=== PATIENT | male | born 1995 | race Caucasian/White ===

== ENCOUNTER → 2020-06-17 | Outpatient (CLI) | payer BC | LOC: ZCOL.LAB 18:37 | DX: R51.9 Headache, unspecified (principal); Z20.828 Contact with and (suspected) exposure to other viral communicable diseases ==

== ENCOUNTER 2022-06-26 19:33 | Inpatient (IN) | payer BC ==
[~2022-06-26] VITALS: Ht 182.9 cm; Wt 78.4 kg
[2022-06-26 21:19] LABS: BASO # 0.1 K/mm3 (0.0-0.2); BASO % 0.5 % (0.0-2.0); EOS % 0.3 % (0.0-4.0); GRAN # 11.8 K/mm3 (1.4-6.5); GRAN % 88.6 % (42.2-75.2); HEMATOCRIT 46.9 % (42.0-52.0); HEMOGLOBIN 15.3 g/dl (13.5-18.0); LYMPH # 0.6 K/mm3 (1.2-3.4); LYMPH % 4.3 % (20.0-51.0); MEAN CELL VOLUME 78 fl (80.0-100.0); MEAN CORPUSCULAR HEMOGLOBIN 26 pg (27-31); MEAN CORPUSCULAR HGB CONC 33 g/dl (33.0-37.0); MEAN PLATELET VOLUME 9.8 fl (7.4-10.4); MONO # 0.8 K/mm3 (0.1-0.6); MONO % 6.1 % (1.7-9.3); PLATELET COUNT 291 K/mm3 (130-400); RED BLOOD COUNT 5.99 M/mm3 (4.20-5.60); REDCELL DISTRIBUTION WIDTH-CV 18.2 % (11.5-14.5)
[2022-06-26 21:38] LABS: ALBUMIN 4.3 gm/dL (3.5-5.0); BILIRUBIN,TOTAL 0.8 mg/dL (0.2-1.2); CALCIUM 9.5 mg/dL (8.4-10.2); CREATININE, serum 1.14 mg/dL (0.72-1.25); POTASSIUM 4.5 mmol/L (3.5-4.5); TOTAL PROTEIN 8.5 gm/dL (6.2-8.1)
[2022-06-26 22:19] LABS: COLLECTION METHOD CLEAN CATCH
[2022-06-26 22:29] LABS: URINE APPEARANCE Clear (CLEAR/HAZY); URINE BLOOD Negative (NEGATIVE); URINE COLOR Amber (YELLOW); URINE GLUCOSE Negative (NEGATIVE); URINE KETONE 2+ (NEGATIVE); URINE NITRATE Negative (NEGATIVE); URINE PROTEIN(semi-quant) 1+ (NEGATIVE); URINE UROBILINOGEN 0.2 E.U/dL (0.2-1.0)
[2022-06-26 22:37] LABS: MUCOUS Present (NOT PRESENT); SQUAMOUS EPITHELIAL 0-2 /hpf (0-10); URINE BACTERIA None Seen /hpf (NONE SEEN); URINE RBC 0-2 /hpf (0-2)
[2022-06-27] VITALS (7 sets, daily range): BP systolic 106–137; BP diastolic 60–92; PULSE 60–87; TEMP 97.7–98.6
[2022-06-27] MEDS ORDERED: PROBIOTIC-MAJOR PO (00:52)
[2022-06-27] MEDS ORDERED: STELARA90 MG/ML SQ (00:55)
[2022-06-28 03:36] VITALS: BP 108/71; PULSE 64; TEMP 97.8
[2022-06-28 07:14] VITALS: BP 110/58; PULSE 54; TEMP 97.5
[2022-06-28 09:10] LABS: BASO % 0.3 % (0.0-2.0); HEMATOCRIT 37.4 % (42.0-52.0); LYMPH # 0.5 K/mm3 (1.2-3.4); LYMPH % 6.2 % (20.0-51.0); MEAN CELL VOLUME 79 fl (80.0-100.0); MEAN CORPUSCULAR HEMOGLOBIN 26 pg (27-31); MEAN CORPUSCULAR HGB CONC 33 g/dl (33.0-37.0); MEAN PLATELET VOLUME 9.9 fl (7.4-10.4); MONO # 0.2 K/mm3 (0.1-0.6); MONO % 3.1 % (1.7-9.3); PLATELET COUNT 224 K/mm3 (130-400); RED BLOOD COUNT 4.72 M/mm3 (4.20-5.60); REDCELL DISTRIBUTION WIDTH-CV 17.4 % (11.5-14.5)
[2022-06-28 09:11] LABS: HEMOGLOBIN 12.2 g/dl (13.5-18.0)
[2022-06-28 09:31] LABS: ALBUMIN 3.2 gm/dL (3.5-5.0); BILIRUBIN,TOTAL 0.7 mg/dL (0.2-1.2); CALCIUM 8.7 mg/dL (8.4-10.2); CREATININE, serum 0.83 mg/dL (0.72-1.25); TOTAL PROTEIN 6.4 gm/dL (6.2-8.1)
[2022-06-28 13:06] VITALS: BP 115/75; PULSE 74; TEMP 98.3
[2022-06-28 15:26] VITALS: BP 111/67; PULSE 66; TEMP 98.1
[2022-06-28 20:00] VITALS: BP 119/71; PULSE 56; TEMP 98.2
[2022-06-29 00:25] VITALS: BP 113/65; PULSE 69; TEMP 98.8
[2022-06-29 04:37] VITALS: BP 108/67; PULSE 63; TEMP 97.8
[2022-06-29 07:50] VITALS: BP 111/62; PULSE 50; TEMP 97.8
[2022-06-29 12:06] VITALS: BP 119/67; PULSE 57; TEMP 98.3
[2022-06-29 15:22] VITALS: BP 121/65; PULSE 62; TEMP 98
[2022-06-29] MEDS ORDERED: PREDNISONE 5MG5 MG PO (18:29)
== END 2022-06-29 20:23 | disposition home or self-care (01) | DRG 387 ==
LOC: COL.ER 19:33 → SURG 23:11
PROVIDERS: Emergency Medicine; ADMIT Surgery
DX: K50.912 Crohn's disease, unspecified, with intestinal obstruction (principal); D72.829 Elevated white blood cell count, unspecified; K52.9 Noninfective gastroenteritis and colitis, unspecified; B39.9 Histoplasmosis, unspecified; T50.995A Adverse effect of other drugs, medicaments and biological substances, initial encounter; Y92.89 Other specified places as the place of occurrence of the external cause; Z88.8 Allergy status to other drugs, medicaments and biological substances; Z53.29 Procedure and treatment not carried out because of patient's decision for other reasons
CPT/HCPCS: J0744; J1170; J2270; J2405; J2930; J7030; J7120; Q9967

== ENCOUNTER 2024-07-07 10:08 | Inpatient (IN) | payer BC ==
[~2024-07-07] VITALS: Ht 182.9 cm; Wt 88.8 kg
[~2024-07-07 10:08] MED LIST: MAG-OX 400400 MG/TAB PO; OMEGA-3 1000 MG1 CAP PO; PREDNISONE 5MG5 MG PO; PROBIOTIC-MAJOR PO; SKYRIZI600 MG/10 IV; STELARA90 MG/ML SQ
[2024-07-07] MEDS ORDERED: methylPREDNISolone Sod Succ 125 MG/2 ML VIAL IV ONE (12:15)
[2024-07-07] MEDS ORDERED: Morphine 4 MG/ML VIAL IV ONE ×2 (12:15→14:15)
[2024-07-07] MEDS ORDERED: Ondansetron 4 MG/2 ML VIAL IV ONE (12:15)
[2024-07-07] MEDS ORDERED: LR 1,000 ML IV ONE (12:15)
[2024-07-07 12:33] LABS: BASO % 0.4 % (0.0-2.0); EOS # 0.1 K/mm3 (0.0-0.7); EOS % 0.5 % (0.0-4.0); GRAN # 9.8 K/mm3 (1.4-6.5); GRAN % 87.4 % (42.2-75.2); HEMATOCRIT 50.2 % (42.0-52.0); HEMOGLOBIN 16.6 g/dl (13.5-18.0); LYMPH # 0.7 K/mm3 (1.2-3.4); MEAN CELL VOLUME 89 fl (80.0-100.0); MEAN CORPUSCULAR HEMOGLOBIN 29 pg (27-31); MEAN CORPUSCULAR HGB CONC 33 g/dl (33.0-37.0); MEAN PLATELET VOLUME 9.2 fl (7.4-10.4); MONO # 0.6 K/mm3 (0.1-0.6); MONO % 5.3 % (1.7-9.3); PLATELET COUNT 260 K/mm3 (130-400); RED BLOOD COUNT 5.66 M/mm3 (4.20-5.60); REDCELL DISTRIBUTION WIDTH-CV 14.2 % (11.5-14.5)
[2024-07-07 12:53] LABS: ALBUMIN 4.1 g/dL (3.5-5.0); BILIRUBIN,TOTAL 0.7 mg/dL (0.2-1.2); C-REACTIVE PROTEIN 1.27 mg/dL (0.00-0.50); CALCIUM 9.8 mg/dL (8.4-10.2); CREATININE, serum 1.05 mg/dL (0.72-1.25); POTASSIUM 4.8 mEq/L (3.5-4.5); TOTAL PROTEIN 8.3 g/dl (6.2-8.1)
[2024-07-07] MEDS ORDERED: NORCO 325 MG-51 TAB PO (14:08)
[2024-07-07] MEDS ORDERED: PREDNISONE10 MG PO (14:12)
[2024-07-07] MEDS ORDERED: Iohexol 300 - 100 ML VIAL IV ONE (14:43)
[2024-07-07] MEDS ORDERED: NS 100 ML IV SCH (14:44)
[2024-07-07] MEDS ORDERED: Morphine 4 MG/ML VIAL IV PRN (16:00)
[2024-07-07] MEDS ORDERED: LR 1,000 ML IV SCH (16:00)
[2024-07-07] MEDS ORDERED: Ondansetron 4 MG/2 ML VIAL IV PRN (16:00)
[2024-07-07] MEDS ORDERED: SKYRIZI ON360 MG/2.4 SQ (16:46)
[2024-07-07 17:07] VITALS: BP 121/73; PULSE 65; TEMP 98.5
--- NOTE | 2024-07-07 17:10 | NUR ---
arrived on unit per cart and assisted off cart and into bed, IV infusing per pump at 75mlhr, he denies needs at this time
[2024-07-07 17:26] VITALS: BP_SYST 121
--- NOTE | 2024-07-07 17:47 | NUR ---
admission and physical assessments completed, he c/os pain 4/10 to abdomen and declines pain med at this time, IV infusin g to right antecubital and is without redness or swelling,
--- NOTE | 2024-07-07 18:46 | NUR ---
resting in bed on compouter, bedside shift report given to ADAMS Gill
[2024-07-07 19:12] VITALS: BP 119/76; PULSE 65; TEMP 98.1
[2024-07-07 20:42] VITALS: BP_SYST 119
[2024-07-07] MEDS ORDERED: methylPREDNISolone Sod Succ 125 MG/2 ML VIAL IV SCH (21:00)
--- NOTE | 2024-07-07 21:36 | NUR ---
patient lying in bed, alert and oriented x4. denies chest pain/discomfort and shortness of breath. IV in RAC is patent, site CDI with LR running at 75 ml/hr. ambulating with steady gait. pt states having had a small formed BM this morning. call light within reach. pt has no further needs, questions, or concerns at this time.
[2024-07-07 23:21] VITALS: BP 114/72; PULSE 72; TEMP 98.2
[2024-07-08] VITALS (12 sets, daily range): BP systolic 100–118; BP diastolic 62–73; PULSE 55–70; TEMP 96.8–98.1
--- NOTE | 2024-07-08 07:06 | NUR ---
Bedside report received from ADAMS Buenrostro. Pt awake in bed with no complaints. [employer]. [employer] MANA[employer] student Yesenia at bedside to complete cares with nurse this AM. Call light within reach.
[2024-07-08 07:52] LABS: HEMATOCRIT 44.2 % (42.0-52.0); HEMOGLOBIN 14.8 g/dl (13.5-18.0); MEAN CELL VOLUME 88 fl (80.0-100.0); MEAN CORPUSCULAR HEMOGLOBIN 29 pg (27-31); MEAN CORPUSCULAR HGB CONC 34 g/dl (33.0-37.0); PLATELET COUNT 229 K/mm3 (130-400); RED BLOOD COUNT 5.04 M/mm3 (4.20-5.60); REDCELL DISTRIBUTION WIDTH-CV 14.3 % (11.5-14.5)
[2024-07-08 08:17] LABS: ALBUMIN 3.5 g/dL (3.5-5.0); BILIRUBIN,TOTAL 0.7 mg/dL (0.2-1.2); CALCIUM 9.1 mg/dL (8.4-10.2); CREATININE, serum 0.89 mg/dL (0.72-1.25); POTASSIUM 4.6 mEq/L (3.5-4.5)
[2024-07-08 08:21] LABS: BAND 1 % (0-10); LYMPHOCYTE 8 % (20.0-51.0); NEUTROPHILS 89 % (42.0-75.2); PLATELET ESTIMATE NORMAL (NORMAL)
--- NOTE | 2024-07-08 09:52 | NUR ---
MILADY met with patient and his mom Yolis ([phone]) to complete initial assessment for discharge planning. Patient confirmed that he lives in [place] with his Susi ([phone]). Patient sees Dr. Aracely Barrett as his PCP and uses [facility] without difficulty. Patient denies using any DME. Patient denies having a DPOA assigned and states his is his NOK. Patient plans to return home at discharge. Discharge plan: Home
[2024-07-08] MEDS ORDERED: Pantoprazole 40 MG in NS 10 ML IV SCH (10:00)
--- NOTE | 2024-07-08 12:42 | NUR ---
Initial visit; Patient and his mom welcomed Refinery Process Engineer who inquired how Abdulaziz is doing today. He said he was doing well and is ready to go home. Refinery Process Engineer offered him God's blessings and is pleased that Abudlaziz has been Discharged.
[2024-07-08] MEDS ORDERED: Acetaminophen 325 MG TAB PO PRN (15:15)
[2024-07-09] VITALS (7 sets, daily range): BP systolic 105–115; BP diastolic 65–75; PULSE 52–57; TEMP 97.6–98.1
--- NOTE | 2024-07-09 00:56 | NUR ---
patient lying in bed,a lert and oriented x4. denies chest pain/discomfort, shortness of breath and abd pain or nausea. pt able to tolerate clear liquid dinner meal tray and small chocolate pudding with additional discomfort, states "only having some gas release". IV in RAC is patent, site CDi with LR running at 75 ml/hr. ambulating with steady gait. call light within reach. pt has no further needs, questions or concerns at this time
[2024-07-09 06:20] LABS: HEMATOCRIT 41.4 % (42.0-52.0); HEMOGLOBIN 13.9 g/dl (13.5-18.0); MEAN CELL VOLUME 88 fl (80.0-100.0); MEAN CORPUSCULAR HEMOGLOBIN 29 pg (27-31); MEAN CORPUSCULAR HGB CONC 34 g/dl (33.0-37.0); MEAN PLATELET VOLUME 9.7 fl (7.4-10.4); PLATELET COUNT 220 K/mm3 (130-400); RED BLOOD COUNT 4.73 M/mm3 (4.20-5.60); REDCELL DISTRIBUTION WIDTH-CV 14.2 % (11.5-14.5)
[2024-07-09 06:49] LABS: ALBUMIN 3.4 g/dL (3.5-5.0); BILIRUBIN,TOTAL 0.7 mg/dL (0.2-1.2); CALCIUM 8.4 mg/dL (8.4-10.2); CREATININE, serum 0.86 mg/dL (0.72-1.25); POTASSIUM 4.3 mEq/L (3.5-4.5); TOTAL PROTEIN 6.8 g/dl (6.2-8.1)
[2024-07-09 07:34] LABS: BAND 1 % (0-10); LYMPHOCYTE 2 % (20.0-51.0); NEUTROPHILS 97 % (42.0-75.2); PLATELET ESTIMATE NORMAL (NORMAL)
[2024-07-09] MEDS ORDERED: PREDNISONE 5MG5 MG PO (10:59)
--- NOTE | 2024-07-09 13:54 | NUR ---
THIS RN PROVIDED PATIENT WITH DISCHARGE EDUCATION AND INSTRUCTIONS. ALL QUESTIONS ANSWERED. BAND SHOVER DISCONTINUED IV TO RIGHT AC. CATHETER INTACT.
--- NOTE | 2024-07-09 14:42 | NUR ---
PATIENT ESCORTED OFF UNIT AT APPROX 1435. ALL BELONGINGS WITH PATIENT.
== END 2024-07-09 14:35 | disposition home or self-care (01) | DRG 386 ==
LOC: COL.ER 10:08 → MEDICAL 15:21
PROVIDERS: Family Medicine; Physician Assistant; ADMIT Internal Medicine
DX: K50.012 Crohn's disease of small intestine with intestinal obstruction (principal); R18.8 Other ascites; Z79.899 Other long term (current) drug therapy; Z88.8 Allergy status to other drugs, medicaments and biological substances; E87.5 Hyperkalemia
CPT/HCPCS: J2270; J2405; J2919; J7120; Q9967